=== PATIENT | female | born 1995 | race Caucasian/White ===

== ENCOUNTER 2020-02-05 05:57 | Day surgery (SDC) | payer OTHER ==
[2020-02-04 11:03] VITALS: BMI 28.3
[2020-02-05] MEDS ORDERED: Acetaminophen 500 MG TAB ONE (06:17)
[2020-02-05] MEDS ORDERED: Ketorolac Tromethamine 30 MG/ML VIAL ONE (06:17)
[2020-02-05 06:45] LABS: #Eosinphils 0.1 thou/uL (0.0-0.7); #Lymphocytes 2.1 thou/uL (1.20-3.40); #Monocytes 0.5 thou/uL (0.11-0.59); #Neutrophils 4.7 thou/uL (1.40-6.50); %Basophils 0.7 % (0.0-1.0); %Eosinophils 1.1 % (0.0-10.0); %Neutrophils 63.2 % (42.0-75.0); Hemoglobin 15.5 g/dL (12.0-16.0); Mean Corpuscular HGB CONC 35.1 g/dL (32.0-36.0); Mean Corpuscular Hemoglobin 33.2 pg (27.0-31.0); Mean Corpuscular Volume 94.8 fL (78.0-98.0); Mean Platelet Volume 7.6 fL (7.4-10.4); Platelet Count 198 thou/uL (130-400); RBC Distribution Width 11.1 % (11.5-14.5); Red Blood Cell (RBC) Count 4.66 mill/uL (4.20-5.40); White Blood Cell (WBC) Count 7.5 thou/uL (4.8-10.8)
[2020-02-05 06:52] LABS: BHCG - Serum Negative (NEGATIVE); Pregs Control Background? CLEAR/WHITE (CLR/WHITE); Pregs Control Bar Appear? YES (CONTROL BAR)
[2020-02-05] MEDS ORDERED: Fentanyl 100 MCG/2 ML VIAL ONE (06:57)
[2020-02-05] MEDS ORDERED: Midazolam HCl 2 mg/2 ml Vial ONE (06:57)
[2020-02-05] MEDS ORDERED: Propofol 500 MG/50 ML VIAL ONE (06:57)
[2020-02-05] MEDS ORDERED: Lidocaine 1% w/Epinephrine 1:100K 20 ML VIAL ONE (06:58)
[2020-02-05] MEDS ORDERED: Bupivacaine 0.25% HCL 30 ML VIAL ONE (06:58)
[2020-02-05 07:06] LABS: Anion Gap 12 mmol/L (10-20); BUN (Urea Nitrogen) 12 mg/dL (7.0-18.7); Calc. Creatinine Clearance 122 mL/min (70-130); Calcium 9.1 mg/dL (7.8-10.44); Carbon Dioxide 25 mmol/L (22-29); Chloride 104 mmol/L (98-107); Estimated GFR-MDRD Greater than 90; Glucose 94 mg/dL (70-105); Sodium 137 mmol/L (136-145)
--- NOTE | 2020-02-05 09:08 | RAD ---
XR Chest 1 View Portable HISTORY: Mediport placement COMPARISON: None FINDINGS: The heart size is normal. The lungs are well expanded without focal areas of consolidation, pneumothorax or pleural effusions. There is a left subclavian Port-A-Cath with tip in the projection of the SVC. IMPRESSION: No radiographic evidence of acute cardiopulmonary process.
--- NOTE | 2020-02-05 13:34 | PDOC.OP ---
Operative Note - Operative Note Operative Note: PROCEDURE: Left subclavian MediPort placement with fluoroscopic guidance DATE OF PROCEDURE: 02/05/2020 SURGEON: Philippe Scanlon M.D. PREOPERATIVE DIAGNOSIS: Right breast cancer POSTOPERATIVE DIAGNOSIS: Right breast cancer HISTORY: Patient has been diagnosed with invasive breast cancer. She has a large mass in her right lateral breast and a suspicious lymph node. Neoadjuvant chemotherapy has been recommended and a Mediport has been requested for this. OPERATIVE PROCEDURE IN DETAIL: After informed consent was obtained and appropriate preoperative antibiotics administered, the patient was taken to the operating room and placed in supine position and monitored anesthesia care was administered. The patient was then placed in Trendelenburg position and the subclavian vein accessed easily on the first attempt with excellent flow of dark venous non-pulsatile blood. A wire threaded easily and was confirmed to be in the superior vena cava by fluoroscopy. Additional local anesthesia was infused to the skin and subcutaneous tissues lateral and inferior to the access site. The skin incision was extended from the wire laterally and a subcutaneous pocket developed inferiorly. A Mediport was obtained and confirmed to fit in the subcutaneous pocket. This was secured inferiorly to the pectoralis fascia with a Prolene suture, which was clamped, but not tied. The dilator and sheath were then placed over the wire and the dilator and wire removed leaving the sheath in place. The clamped MediPort tubing was tunneled through the sheath, which was then split and removed leaving the MediPort tubing in place. The tubing was adjusted until the tip was confirmed by fluoroscopy to be in the superior vena cava just above the atrium. The tubing was clamped at the skin level and cut and the tubing secured to the port, which was then placed in the subcutaneous pocket. The previously placed suture was secured and two additional sutures were placed to fix the port in place within the pocket. The port was aspirated with the Francis needle and had excellent flow of dark venous non-pulsatile blood and easily flushed without resistance. The subcutaneous tissues were closed with a running Monocryl suture , following which the skin was closed with a running subcuticular Monocryl suture. Dermabond dressings were placed and the hub was again accessed through the skin and confirmed to easily aspirate and easily flush. The course of the catheter was confirmed by fluoroscopy to be smooth with the tip appropriately located in the superior vena cava. The patient was taken back to the day stay unit in good condition. Estimated blood loss was minimal. There were no complications. There were no specimens.
== END 2020-02-05 09:35 | disposition home or self-care (01) ==
LOC: SDC 05:57
PROVIDERS: ATTEND Surgery
PROC: 02HV33Z Insertion of Infusion Device into Superior Vena Cava, Percutaneous Approach (ICD-10-PCS; principal; 2020-02-05)
DX: C50.911 Malignant neoplasm of unspecified site of right female breast (principal); F17.200 Nicotine dependence, unspecified, uncomplicated
CPT/HCPCS: 71045; 80048; 84703; 85025; C1788; J0690; J1642; J1885; J2250; J2704; J3010; S0020

== ENCOUNTER 2020-02-05 12:06 | Outpatient (CLI) | payer OTHER ==
[2020-02-05] MEDS ORDERED: Iopamidol 370 76% 100 ML VIAL ONE (13:51)
--- NOTE | 2020-02-05 15:34 | CT ---
CT CHEST AND ABDOMEN AND PELVIS WITH IV CONTRAST: Oral contrast was administered. INDICATION: Breast cancer staging. COMPARISON: No comparison. FINDINGS: CT CHEST: The lungs show no evidence of infiltrate. There is stranding seen in both posterior lower lobes cons istent with atelectatic change. A small nonspecific nodular density in the right lung base seen on i mage 41 measuring approximately 4 mm is noted. The lung hammond otherwise appear clear. The mediastinum is unremarkable. Thyroid is mildly prominent but appears relatively homogeneous. Both breasts show heterogeneously dense glandular pattern. There is abnormal density in the lateral right breast which may represent hematoma from breast biopsy or surgical procedure. There is associa chandler skin thickening in the right breast. These changes are probably related to patient's known histo ry of breast cancer. There is right axillary adenopathy. There are several nonspecific lymph nodes in the right axilla me asuring in the 1 to 1.5 cm range. There is one larger lymph node which measures up to 2.0 cm. There are small nonspecific left axillary lymph nodes. Osseous structures are unremarkable. IMPRESSION: 1. Nonspecific stranding in the posterior lung bases bilaterally suggesting linear atelectasis. The re is a pleural-based atelectasis in the posterior right lung base. 2. A small nonspecific nodule in the right lower lobe measuring in the 4 mm range. 3. Postoperative changes in the right breast with possible hematoma. Skin thickening in the right b reast. 4. There is associated right axillary adenopathy as described. Suggest short-term followup CT chest to confirm stability of the nonspecific nodularity. CT ABDOMEN AND PELVIS: Liver, spleen, and pancreas are unremarkable. Stomach and duodenum unremarkable. Adrenal glands normal. Kidneys unremarkable. Small and large bowel appear unremarkable. No evidence of adenopathy. Images through the pelvis show mildly a prominent uterus. A small amount of free fluid in the cul-de -sac. The ovaries and adnexa appear unremarkable for age. IMPRESSION: 1. No evidence of mass or adenopathy. 2. A small amount of fluid in the cul-de-sac of the pelvis which is nonspecific in this age patient. POS: [facility]
== END 2020-02-05 12:07 | disposition home or self-care (01) ==
LOC: CT 12:06
PROVIDERS: ATTEND Internal Medicine Hematology & Oncology
DX: Z51.11 Encounter for antineoplastic chemotherapy (principal); C50.411 Malignant neoplasm of upper-outer quadrant of right female breast; R91.1 Solitary pulmonary nodule; R59.0 Localized enlarged lymph nodes; I07.1 Rheumatic tricuspid insufficiency; I37.0 Nonrheumatic pulmonary valve stenosis
CPT/HCPCS: 71260; 74177; 93306

== ENCOUNTER 2020-02-09 09:22 | Outpatient (CLI) | payer OTHER ==
--- NOTE | 2020-02-09 13:10 | NM ---
Radionucleotide bone scan HISTORY: Breast cancer. Initial staging. FINDINGS: Physiologic uptake of radiotracer throughout the skeleton. Bladder uptake partially obscure s the pubic symphysis. No abnormal areas radiotracer uptake are apparent. IMPRESSION: No scintigraphic evidence of skeletal metastasis.
== END 2020-02-09 09:23 | disposition home or self-care (01) ==
LOC: NM 09:22
PROVIDERS: ATTEND Internal Medicine Hematology & Oncology
DX: C50.411 Malignant neoplasm of upper-outer quadrant of right female breast (principal)
CPT/HCPCS: 78306; A9503

== ENCOUNTER 2020-02-12 08:57 | Outpatient (CLI) | payer OTHER ==
--- NOTE | 2020-02-12 14:46 | PET ---
Radionucleotide PET scan with CT attenuation correction HISTORY: Right breast cancer. Initial staging. FINDINGS: Physiologic uptake of radiotracer throughout the enteric system and along each urinary trac t. The irregular shaped hypermetabolic mass within the lateral aspect of the right breast shows maximum SUV of 9.5. Within the far inferior medial aspect of the right breast, approaching the chest wall, an oval well-c ircumscribed soft tissue density lesion is 1.2 cm length by 0.7 cm depth and shows increased activity with a maximum SUV of 5.6. The dominant hypermetabolic foci associated with the right axillary lymph nodes shows maximum SUV of 9.5 and 5.6. No other areas of pathologic activity are evident. In the area of tiny nodule in the right lower lung lobe, no abnormal activity is apparent, although the size of that nodule is below the expected threshold for detection. Nondiagnostic CT of attenuation correction images show mild scarring at the left posterior lung base. Left subclavian Mediport is in place. There is incomplete posterior osseous fusion at the first sacral level. Physiologic amount of free fluid is present within the cul-de-sac. IMPRESSION: Hypermetabolic activity is associated with the dominant right breast mass and right axill karina adenopathy. The additional hypermetabolic mass at the inferior medial aspect of the right breast is favored to re present a secondary breast lesion (rather than a metastatic focus).
== END 2020-02-12 08:58 | disposition home or self-care (01) ==
LOC: PET 08:57
PROVIDERS: ATTEND Internal Medicine Hematology & Oncology
DX: C50.919 Malignant neoplasm of unspecified site of unspecified female breast (principal); R91.1 Solitary pulmonary nodule; R93.7 Abnormal findings on diagnostic imaging of other parts of musculoskeletal system; N63.10 Unspecified lump in the right breast, unspecified quadrant; R59.0 Localized enlarged lymph nodes
CPT/HCPCS: 78815; A9552

== ENCOUNTER 2020-07-21 05:52 | Outpatient (CLI) | payer OTHER ==
[2020-07-21 14:11] LABS: #Eosinphils 0.1 thou/uL (0.0-0.7); #Lymphocytes 1.2 thou/uL (1.20-3.40); #Monocytes 0.6 thou/uL (0.11-0.59); #Neutrophils 4.2 thou/uL (1.40-6.50); %Basophils 0.7 % (0.0-1.0); %Eosinophils 2.1 % (0.0-10.0); %Lymphocytes 19.9 % (21.0-51.0); %Monocytes 9.2 % (0.0-10.0); %Neutrophils 68.1 % (42.0-75.0); Hemoglobin 14.3 g/dL (12.0-16.0); Mean Corpuscular Hemoglobin 33.3 pg (27.0-31.0); Mean Corpuscular Volume 95.1 fL (78.0-98.0); Platelet Count 209 thou/uL (130-400); RBC Distribution Width 11.6 % (11.5-14.5); Red Blood Cell (RBC) Count 4.31 mill/uL (4.20-5.40); White Blood Cell (WBC) Count 6.2 thou/uL (4.8-10.8)
[2020-07-21 15:02] LABS: Anion Gap 12 mmol/L (10-20); BUN (Urea Nitrogen) 14 mg/dL (7.0-18.7); Calc. Creatinine Clearance 0 mL/min (70-130); Calcium 9.3 mg/dL (7.8-10.44); Carbon Dioxide 25 mmol/L (22-29); Chloride 103 mmol/L (98-107); Estimated GFR-MDRD Greater than 90; Glucose 79 mg/dL (70-105); Potassium 4.3 mmol/L (3.5-5.1); Sodium 136 mmol/L (136-145)
[2020-07-22 13:50] LABS: SARS-CoV-2 MS2 Positive; SARS-CoV-2 N Gene Negative; SARS-CoV-2 S Gene Negative; SARS-CoV-2 by NAA Not Detected (NotDetected); SARS-CoV-2 orf1ab Negative
== END 2020-07-21 05:53 | disposition home or self-care (01) ==
LOC: LABBT 05:52
PROVIDERS: ATTEND Surgery
DX: Z01.812 Encounter for preprocedural laboratory examination (principal); Z20.828 Contact with and (suspected) exposure to other viral communicable diseases; C50.911 Malignant neoplasm of unspecified site of right female breast
CPT/HCPCS: 80048; 85025; 87635; U0003

== ENCOUNTER 2020-07-26 07:28 | Day surgery (SDC) | payer OTHER ==
--- NOTE | 2020-07-26 09:08 | NM ---
Exam: Nuclear medicine lymphoscintigraphy HISTORY: Right breast cancer TECHNIQUE: Patient was measured at total of 0.413 mCi of technetium 99m filter sulfur colloid subcuta neously FINDINGS: Tracer was administered at the 12, 3, 6 and 9:00 position. [place] lymph node is in the ri [facility] axilla IMPRESSION: Right axillary sentinel node.
[2020-07-26] MEDS ORDERED: Ketorolac Tromethamine 30 MG/ML VIAL ONE (09:14)
[2020-07-26] MEDS ORDERED: Acetaminophen 500 MG TAB ONE (09:14)
[2020-07-26] MEDS ORDERED: Lidocaine 1% PF 5 ML VIAL ONE (09:41)
[2020-07-26] MEDS ORDERED: Rocuronium Bromide 10 MG/ML (10ML VIAL) ONE (09:41)
[2020-07-26] MEDS ORDERED: Glycopyrrolate 0.2 MG/ML 5 ML SYRINGE ONE (09:41)
[2020-07-26] MEDS ORDERED: EPHEDRINE 25 MG/5 ML SYRINGE ONE (09:41)
[2020-07-26] MEDS ORDERED: Ondansetron PF 4 MG/2 ML Vial ONE ×2 (09:41→17:37)
[2020-07-26] MEDS ORDERED: PROPOFOL 200 MG/20 ML VIAL ONE (09:41)
[2020-07-26] MEDS ORDERED: Dexamethasone 20 MG/5 ML VIAL ONE (09:41)
[2020-07-26] MEDS ORDERED: Fentanyl 250 MCG/5 ML VIAL ONE (10:23)
[2020-07-26] MEDS ORDERED: Midazolam HCl 2 mg/2 ml Vial ONE (10:23)
[2020-07-26] MEDS ORDERED: Scopolamine 1.5 mg/72 hour Patch ONE (11:16)
[2020-07-26] MEDS ORDERED: Isosulfan Blue 50 MG/5 ML VIAL ONE (11:46)
[2020-07-26] MEDS ORDERED: Lidocaine 1% w/Epinephrine 1:100K 20 ML VIAL ONE (11:46)
[2020-07-26] MEDS ORDERED: Bupivacaine 0.25% HCL 30 ML VIAL ONE (11:46)
[2020-07-26] MEDS ORDERED: HYDROmorphone 0.5 MG/0.5 ML SYRINGE ONE (12:35)
[2020-07-26] MEDS ORDERED: Promethazine HCl 25 MG/ML VIAL ONE (16:50)
[2020-07-26] MEDS ORDERED: Ondansetron PF 4 MG/2 ML Vial IVP PRN (19:15)
[2020-07-26] MEDS ORDERED: traMADol HCl 50 MG TAB PO PRN (19:16)
[2020-07-26] MEDS ORDERED: Acetaminophen 325 MG TAB PO PRN (19:17)
[2020-07-26] MEDS ORDERED: Ibuprofen 200 MG TAB PO PRN (19:20)
[2020-07-26] MEDS: HYDROcodone/Acetaminophen 5/325 mg Tablet PO PRN (22:32)
[2020-07-26 23:29] VITALS: BMI 32.6
[2020-07-27 09:44] VITALS: BP 147/70; TEMP 98.7
[2020-07-27] MEDS: HYDROcodone/Acetaminophen 5/325 mg Tablet PO PRN (10:04)
--- NOTE | 2020-07-30 18:21 | PDOC.OP ---
Operative Note - Operative Note Operative Note: PROCEDURE: Bilateral mastectomy and right sentinel lymph node biopsy SURGEON: Philippe Scanlon M.D. DATE: 07/26/2020 PREOPERATIVE DIAGNOSIS: Right breast cancer POSTOPERATIVE DIAGNOSIS: Right breast cancer HISTORY: Patient with locally advanced right breast cancer with a large upper outer quadrant mass and a 3 cm lymph node biopsy proven positive for metastatic cancer. She has had a good although partial response to neoadjuvant chemotherapy with significant reduction in the size of her mass and her lymph node. The lymph node was marked with a biopsy clip. The patient elected to proceed with bilateral mastectomies for risk reduction and symmetry, with sentinel lymph node biopsy. FINDINGS: Significant fibrotic response to chemotherapy in the breast and axilla. Previously biopsied lymph node was resected as the sentinel lymph node , as demonstrated by visual identification of the coiled biopsy clip on the enlarged fibrotic appearing lymph node. This lymph node was negative by frozen section. No other abnormal appearing or radioactively active lymph nodes were identified in the axilla despite extensive investigation. PROCEDURE IN DETAIL: After informed consent was obtained the patient was taken to the operating room and placed in the supine position. General anesthesia was administered and the breast was prepped with alcohol and lymphazurin injected subdermally behind the right nipple. The breast was massaged for 5 minutes, and then the patient was positioned, prepped and draped. Symmetric elliptical incisions were marked on the skin bilaterally. The right incision was positioned so that the end of the incision was over the lower edge of the hairbearing skin to facilitate sentinel lymph node biopsy and possible axillary dissection. The left mastectomy was performed first. The skin was incised and the plane identified between the subcutaneous fat and the underlying breast tissue. Flaps were developed superiorly to the level of the clavicle, inferiorly to the level of the sternum, and inferiorly to the level of the rectus sheath. The breast tissue was then excised off of the underlying pectoralis muscle from medial to lateral and marked with a long lateral suture. The wound was copiously irrigated and hemostasis obtained using Bovie electrocautery. A BLAS drain was placed exiting laterally and secured to the skin. The flaps were reapproximated with deep dermal chromic sutures and the skin was closed with skin cezar. A Xeroform, gauze, and Tegaderm dressing was placed to the incision and a drain sponge and Tegaderm dressing placed to the BLAS exit site. Attention was then turned to the right sentinel lymph node biopsy and right mastectomy. Local anesthesia was infused to the lower edge of the hairbearing skin of the axilla. The skin was incised and dissection carried down to the area of highest activity by neoprobe. 1 enlarged lymph node with increased activity was identified, with a large amount of fibrosis in the surrounding tissues consistent with chemotherapy response. This was not blue in coloration but did have an elevated target count. A coiled biopsy clip was seen in the capsule of the lymph node confirming that this was the previously biopsied positive lymph node. After it was excised it was sent to pathology for frozen section and returned negative for cancer. An exhaustive search was undertaken of the remaining axilla and no other areas of increased activity and no visually abnormal appearing lymph nodes were able to be identified. One additional tiny but somewhat firm lymph node immediately adjacent to the enlarged lymph node was identified but appeared grossly normal and had no elevated activity. This was sent as a non-sentinel lymph node. Additional local anesthesia was infused for postoperative pain control and the subcutaneous tissues were reapproximated with 3-0 Monocryl suture. Attention was then turned to the right mastectomy, which was performed in the same manner as the left mastectomy. There was fibrosis consistent with treatment effect but a plane was able to be identified between the subcutaneous fat and the breast tissue. As the dissection was carried out laterally elevating the breast off of the pectoralis muscle, the overlying breast tissue appeared to be adherent to the lateral pectoralis muscle , so part of the lateral pectoralis muscle was excised in continuity with the breast tissue. The right breast was marked with a long lateral suture and sent to pathology. The wound was copiously irrigated and hemostasis obtained using Bovie electrocautery with oversewing of a few persistent muscular bleeders with excellent hemostasis obtained. A BLAS drain was then placed laterally and secured to the skin. Deep dermal sutures were used to reapproximate the flaps and the skin was closed with skin cezar. Xeroform, gauze, and Tegaderm dressings were placed to the incision, and a drain sponge and Tegaderm dressing placed to the drain exit site. Fluff dressings were placed to the chest wall and secured with an Rafael wrap. The patient was extubated and taken to recovery in good condition. Estimated blood loss was minimal. There were no complications. Specimen is left breast, right sentinel lymph node and right breast.
== END 2020-07-27 11:55 | disposition home or self-care (01) ==
LOC: SDC 07:28 → ONC 16:55 → UNDOADMIN 16:55 → ONC 16:55 → SDC 07-27 11:55 → UNDODISIN 07-27 11:55
PROVIDERS: ATTEND Surgery
PROC: 0HTV0ZZ Resection of Bilateral Breast, Open Approach (ICD-10-PCS; principal; 2020-07-27)
PROC: 07B50ZX Excision of Right Axillary Lymphatic, Open Approach, Diagnostic (ICD-10-PCS; principal; 2020-07-27)
DX: C50.111 Malignant neoplasm of central portion of right female breast (principal); C50.411 Malignant neoplasm of upper-outer quadrant of right female breast; C77.3 Secondary and unspecified malignant neoplasm of axilla and upper limb lymph nodes; N60.32 Fibrosclerosis of left breast; F17.200 Nicotine dependence, unspecified, uncomplicated; F10.21 Alcohol dependence, in remission; Z17.0 Estrogen receptor positive status [ER+]
CPT/HCPCS: 78195; 88305; 88307; 88309; 88333; 88342; A9541; J0690; J1100; J1170; J1885; J2250; J2405; J2550; J2704; J3010; Q9968; S0020

== ENCOUNTER 2020-08-09 07:39 | Outpatient (CLI) | payer OTHER ==
[2020-08-10 13:02] LABS: SARS-CoV-2 MS2 Positive; SARS-CoV-2 N Gene Negative; SARS-CoV-2 S Gene Negative; SARS-CoV-2 by NAA Not Detected (NotDetected); SARS-CoV-2 orf1ab Negative
== END 2020-08-09 07:40 | disposition home or self-care (01) ==
LOC: LABBT 07:39
PROVIDERS: ATTEND Surgery
DX: C50.911 Malignant neoplasm of unspecified site of right female breast (principal); Z20.828 Contact with and (suspected) exposure to other viral communicable diseases
CPT/HCPCS: 87635; U0003

== ENCOUNTER 2020-08-16 07:10 | Outpatient (CLI) | payer OTHER ==
[2020-08-17 12:30] LABS: SARS-CoV-2 MS2 Positive; SARS-CoV-2 N Gene Negative; SARS-CoV-2 S Gene Negative; SARS-CoV-2 by NAA Not Detected (NotDetected); SARS-CoV-2 orf1ab Negative
== END 2020-08-16 07:11 | disposition home or self-care (01) ==
LOC: LABBT 07:10
PROVIDERS: ATTEND Surgery
DX: C50.919 Malignant neoplasm of unspecified site of unspecified female breast (principal); Z20.828 Contact with and (suspected) exposure to other viral communicable diseases
CPT/HCPCS: 87635; U0003

== ENCOUNTER 2020-08-18 09:28 | Day surgery (SDC) | payer OTHER ==
[2020-08-10 10:34] VITALS: BMI 29.2
[2020-08-18] MEDS ORDERED: PROPOFOL 200 MG/20 ML VIAL ONE (10:13)
[2020-08-18] MEDS ORDERED: Ketorolac Tromethamine 30 MG/ML VIAL ONE (10:13)
[2020-08-18] MEDS ORDERED: Ondansetron PF 4 MG/2 ML Vial ONE ×2 (10:13→10:43)
[2020-08-18] MEDS ORDERED: Lidocaine 1% PF 5 ML VIAL ONE (10:13)
[2020-08-18] MEDS ORDERED: Dexamethasone 20 MG/5 ML VIAL ONE (10:13)
[2020-08-18] MEDS ORDERED: Lidocaine 1% w/Epinephrine 1:100K 20 ML VIAL ONE (10:21)
[2020-08-18] MEDS ORDERED: Bupivacaine 0.25% HCL 30 ML VIAL ONE (10:21)
[2020-08-18] MEDS ORDERED: Famotidine/PF 20 mg/2ml Vial ONE (10:43)
[2020-08-18] MEDS ORDERED: Scopolamine 1.5 mg/72 hour Patch ONE (10:43)
[2020-08-18] MEDS ORDERED: Fentanyl 100 MCG/2 ML VIAL ONE ×2 (11:03→13:37)
[2020-08-18] MEDS ORDERED: Midazolam HCl 2 mg/2 ml Vial ONE (11:03)
--- NOTE | 2020-08-18 15:16 | PDOC.OP ---
Operative Note - Operative Note Operative Note: PROCEDURE: Right axillary dissection SURGEON: Philippe Scanlon M.D. DATE: 08/18/2020 PREOPERATIVE DIAGNOSIS: Locally advanced right breast cancer with sentinel lymph nodes positive on final pathology POSTOPERATIVE DIAGNOSIS: Locally advanced right breast cancer with sentinel lymph nodes positive on final pathology HISTORY: Patient with locally advanced right breast cancer status post neoadjuvant therapy with partial response. She underwent bilateral mastectomy and right sentinel lymph node biopsy. Her right sentinel lymph node was negative on frozen section but positive on final pathology. And all she had 2 out of 2 positive sentinel lymph nodes and the recommendation was made to return to the operating room for completion axillary dissection. FINDINGS: Severe fibrosis of the right axillary contents with the thoracodorsal nerve quite adherent to the axillary contents, but able to be dissected free. 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 She was prepped and draped in the standard sterile fashion and local anesthesia infused to the skin and subcutaneous tissues overlying her right lateral mastectomy incision. The incision was reopened and the dissection carried down to the axilla. There was a large amount of fibrosis in the right axilla, both as a result of treatment effect and as result of her previous surgery. A fresh plane was able to be developed to the lateral chest wall and dissection carried down until the long thoracic nerve was identified. This was dissected free of the axillary contents and carefully avoided for the remainder of the case. Dissection was then carried out laterally to the edge of the latissimus and then superiorly to the area where the axillary vein was expected to be located. However there was a lot of fibrosis in this area and the axillary contents were home very immobile as they were adherent to the pectoralis muscles so the decision was made to dissect this area free first. This was very difficult due to the severe fibrosis but a plane was able to be developed between the fibrotic axillary contents and the underside of the pectoralis muscle. The fibrotic axillary contents were then retracted inferiorly and using meticulous dissection the axillary vein was able to be identified and dissected free. This was somewhat adherent to the axillary contents, especially medially. The thoracodorsal vessels and nerve were identified laterally near their insertion to the latissimus dorsi and dissected free to the insertion in the latissimus dorsi. At these were dissected free more medially they were found to be densely adherent to the axillary contents but they were able to be dissected free and spared. There did not appear to be direct invasion of the nerve. The axillary contents were then retracted inferiorly and dissected free of the chest wall. All of the lymph node bearing tissues inferior to the axillary vein and between the long thoracic and thoracodorsal nerve were resected. The wound was irrigated and hemostasis verified. The long thoracic and thoracodorsal nerves were gently stimulated and confirmed to cause contraction of their respective muscles. No other suspicious lymph nodes were palpated. Additional local anesthesia was infused for postoperative pain control. A BLAS drain was placed exiting laterally and secured to the skin. The subcutaneous tissues were reapproximated with a running 3-0 Monocryl suture and the skin was closed with a running 4-0 Monocryl suture. Dermabond dressings were placed and the BLAS exit site was dressed with a drain sponge and Tegaderm. Patient was extubated and taken to recovery in good condition. Estimated blood loss was minimal. There were no complications. Specimen is right axillary contents.
== END 2020-08-18 17:00 | disposition home or self-care (01) ==
LOC: SDC 09:28
PROVIDERS: ATTEND Surgery
PROC: 07T50ZZ Resection of Right Axillary Lymphatic, Open Approach (ICD-10-PCS; principal; 2020-08-18)
DX: C50.911 Malignant neoplasm of unspecified site of right female breast (principal); C77.3 Secondary and unspecified malignant neoplasm of axilla and upper limb lymph nodes; F17.200 Nicotine dependence, unspecified, uncomplicated; F10.11 Alcohol abuse, in remission
CPT/HCPCS: 88307; J0690; J1100; J1642; J1885; J2250; J2405; J2704; J3010; S0020; S0028